=== PATIENT | female | born 1995 | race Hispanic/Latino ===

== ENCOUNTER 2018-02-14 21:02 | Emergency (ER) | payer OTHER ==
[~2018-02-14] VITALS: Ht 162.6 cm; Wt 106.6 kg
[2018-02-14] MEDS ORDERED: METHYLPREDNISOLONE SOD SUCC 125 MG/2ML VIAL IV ONE (21:30)
[2018-02-14] MEDS ORDERED: ALBUTEROL/IPRATROPIUM 3 ML NEB NEB ONE (21:30)
[2018-02-14] MEDS ORDERED: ALBUTEROL SULF 0.083% NEB SOLN 3 ML NEB NEB STA (22:35)
[2018-02-14] MEDS ORDERED: ALBUTEROL/IPRATROPIUM 3 ML NEB ONE (22:45)
--- NOTE | 2018-02-14 22:50 | Diagnostic Imaging Report ---
CHEST SINGLE (PORTABLE), 02/14/2018 9:22 PM Technique: CHEST SINGLE (PORTABLE) Comparison: None available. Clinical history: Breath Findings: Limited by single portable view of the chest and overlying soft tissues. Impression: 1. Normal cardiomediastinal silhouette for technique. 2. No consolidation or edema. 3. No effusion or pneumothorax. 4. 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 Signed by: Dr Patito Patel MD on 02/14/2018 10:47 PM
[2018-02-14] MEDS ORDERED: SODIUM CHLORIDE 0.9% 1000ML 1,000 ML IV SCH (23:45)
[2018-02-15 01:11] VITALS: BP 107/67
== END 2018-02-15 01:20 | disposition home or self-care (01) ==
LOC: ER 21:02
DX: R06.00 Dyspnea, unspecified (principal); R05 Cough; J45.41 Moderate persistent asthma with (acute) exacerbation
CPT/HCPCS: 71045; 94640; 99283; J2930; J7030

== ENCOUNTER 2024-07-31 00:58 | Inpatient (IN) | payer SELFPAY ==
[~2024-07-31] VITALS: Ht 165.1 cm; Wt 108.9 kg
[2024-07-31] VITALS (29 sets, daily range): BP systolic 98–129; BP diastolic 64–85; PULSE 76–114; RESP 14–25; TEMP 97.4–98.9; O2SAT 97–100
[2024-07-31] MEDS: PREDNISONE 20 MG TAB PO STA (01:25)
[2024-07-31] MEDS: ALBUTEROL/IPRATROPIUM 3 ML NEB NEB ONE (01:27)
[2024-07-31 01:34] LABS: STREPTOCOCCUS GRP A ANTIGEN NEGATIVE (NEGATIVE)
[2024-07-31 01:45] LABS: CORONAVIRUS COVID-19 AG NEGATIVE (NEGATIVE); INFLUENZA A AG NEGATIVE (NEGATIVE); INFLUENZA B AG NEGATIVE (NEGATIVE)
[2024-07-31] MEDS: ALBUTEROL/IPRATROPIUM 3 ML NEB NEB STA (02:06)
[2024-07-31] MEDS: MAGNESIUM SULF 1GRAM/DEXTROSE 100 ML IV ONE (02:10)
[2024-07-31] MEDS: SODIUM CHLORIDE 0.9% 1000ML 1,000 ML IV SCH (02:11)
[2024-07-31 03:33] LABS: AMPHETAMINES SCREEN,URINE NEGATIVE (NEGATIVE); BENZODIAZEPINES SCREEN,URINE NEGATIVE (NEGATIVE); CANNABINOIDS SCREEN,URINE NEGATIVE (NEGATIVE); COCAINE SCREEN,URINE NEGATIVE (NEGATIVE); METHADONE SCREEN, URINE NEGATIVE (NEGATIVE); OPIATES SCREEN,URINE NEGATIVE (NEGATIVE); PHENCYCLIDINE SCREEN,URINE NEGATIVE (NEGATIVE)
[2024-07-31] MEDS: ALBUTEROL SULF 0.083% NEB SOLN 3 ML NEB NEB SCH (04:04)
[2024-07-31 06:34] LABS: BASOPHILS # (AUTO) 0.1 (0.0-0.1); BASOPHILS % 0.5 % (0.0-1.0); EOSINOPHILS # (AUTO) 0.6 (0.0-0.4); EOSINOPHILS % 5.8 % (0.0-6.0); HEMATOCRIT 37.2 % (34.2-44.1); HEMOGLOBIN 12.1 g/dL (12.0-16.0); LYMPHOCYTES % 19.9 % (18.0-39.1); MEAN CORPUSCULAR HEMOGLOBIN 31.5 pg (28-32); MEAN CORPUSCULAR HGB CONC 32.5 g/dL (31-35); MEAN CORPUSCULAR VOLUME 96.9 fL (81-99); MONOCYTES # (AUTO) 0.5 (0.2-0.8); MONOCYTES % 4.9 % (4.4-11.3); NEUTROPHILS # (AUTO) 6.9 (2.1-6.9); NEUTROPHILS % 68.6 % (38.7-80.0); PLATELET COUNT 307 x10e3/uL (140-360); RED BLOOD COUNT 3.84 x10e6/uL (3.6-5.1); RED CELL DISTRIBUTION WIDTH 12.6 % (11.7-14.4); WHITE BLOOD COUNT 10.05 x10e3/uL (4.8-10.8)
[2024-07-31 06:56] LABS: ALBUMIN/GLOBULIN RATIO 1.3 (0.8-2.0); ANION GAP 13.6 mmol/L (8-16); BILIRUBIN,TOTAL 0.2 mg/dL (0.2-1.2); CALCIUM 9.2 mg/dL (8.4-10.2); CREATININE, SERUM 0.77 mg/dL (0.57-1.11); POTASSIUM 3.6 mmol/L (3.5-5.1); TOTAL PROTEIN 7.2 g/dL (6.5-8.1)
[2024-07-31] MEDS ORDERED: ONDANSETRON HCL INJ 2MG/ML 2ML 2 MG/ML VIAL IV PRN (08:45)
[2024-07-31] MEDS ORDERED: HYDRALAZINE HCL 20 MG/ML VIAL IV PRN (08:45)
[2024-07-31] MEDS ORDERED: DOXYCYCLINE HYCLATE TABLET 100 MG TAB PO SCH (09:00)
[2024-07-31] MEDS: METHYLPREDNISOLONE SOD SUCC 40 MG/ML VIAL 1ML IV SCH (09:30)
[2024-07-31] MEDS ORDERED: ALBUTEROL0.63 MG/3 NEB (09:47)
[2024-07-31 10:30] LABS: ABG HCO3 19 mmol/L (22-26); ABG PCO2 25 mmHg (35-45); ABG PH 7.49 (7.35-7.45); ABG PO2 74 mmHg (80-105); ABG TCO2 20
[2024-07-31] MEDS: ALBUTEROL/IPRATROPIUM 3 ML NEB NEB SCH (10:59)
[2024-07-31 12:39] LABS: ABG HCO3 19 mmol/L (22-26); ABG PCO2 25 mmHg (35-45); ABG PH 7.49 (7.35-7.45); ABG PO2 74 mmHg (80-105); ABG TCO2 20
[2024-07-31] MEDS: ENOXAPARIN SOD INJ 40 MG/0.4 ML SYR SC SCH (17:08)
[2024-07-31] MEDS: ACETAMINOPHEN 325 MG TAB PO PRN (18:43)
[2024-07-31] MEDS: BUDESONIDE/FORMOTEROL 160/4.5MCG INHALER INH SCH (19:26)
[2024-08-01] VITALS (18 sets, daily range): BP systolic 61–119; BP diastolic 8–74; PULSE 93–142; RESP 11–22; TEMP 97.7–98.4; O2SAT 93–100
[2024-08-01] MEDS: GUAIFENESIN/CODEINE 5 ML LIQD PO PRN (01:13)
[2024-08-01] MEDS: ALBUTEROL/IPRATROPIUM 3 ML NEB NEB PRN (05:06)
[2024-08-01 07:02] LABS: BASOPHILS % 0.1 % (0.0-1.0); HEMATOCRIT 36.9 % (34.2-44.1); HEMOGLOBIN 12.4 g/dL (12.0-16.0); LYMPHOCYTES # (AUTO) 0.8 (1.0-3.2); LYMPHOCYTES % 5.6 % (18.0-39.1); MEAN CORPUSCULAR HEMOGLOBIN 31.8 pg (28-32); MEAN CORPUSCULAR HGB CONC 33.6 g/dL (31-35); MEAN CORPUSCULAR VOLUME 94.6 fL (81-99); MONOCYTES # (AUTO) 0.2 (0.2-0.8); MONOCYTES % 1.4 % (4.4-11.3); NEUTROPHILS % 92.3 % (38.7-80.0); PLATELET COUNT 333 x10e3/uL (140-360); RED CELL DISTRIBUTION WIDTH 12.7 % (11.7-14.4); WHITE BLOOD COUNT 15.13 x10e3/uL (4.8-10.8)
[2024-08-01 07:28] LABS: ALBUMIN 3.8 g/dL (3.5-5.0); ALBUMIN/GLOBULIN RATIO 1.2 (0.8-2.0); ANION GAP 13.1 mmol/L (8-16); BILIRUBIN,TOTAL 0.2 mg/dL (0.2-1.2); CALCIUM 9.1 mg/dL (8.4-10.2); CREATININE, SERUM 0.65 mg/dL (0.57-1.11); POTASSIUM 4.1 mmol/L (3.5-5.1); TOTAL PROTEIN 6.9 g/dL (6.5-8.1)
[2024-08-01] MEDS: METHYLPREDNISOLONE SOD SUCC 40 MG/ML VIAL 1ML IV STA (20:13)
[2024-08-01] MEDS: METHYLPREDNISOLONE SOD SUCC 40 MG/ML VIAL 1ML IV SCH (22:31)
[2024-08-02] VITALS (15 sets, daily range): BP systolic 100–115; BP diastolic 61–74; PULSE 72–127; RESP 16–22; TEMP 97.5–98.2; O2SAT 94–100
[2024-08-02] MEDS: BENZONATATE 100 MG CAP PO PRN (10:14)
[2024-08-02] MEDS: METHYLPREDNISOLONE SOD SUCC 40 MG/ML VIAL 1ML IV SCH (20:07)
[2024-08-03] VITALS (15 sets, daily range): BP systolic 107–124; BP diastolic 68–88; PULSE 80–115; RESP 18–22; TEMP 97.7–98.3; O2SAT 97–100
[2024-08-03 08:30] LABS: BASOPHILS % 0.1 % (0.0-1.0); HEMATOCRIT 37.9 % (34.2-44.1); HEMOGLOBIN 12.4 g/dL (12.0-16.0); LYMPHOCYTES # (AUTO) 1.4 (1.0-3.2); LYMPHOCYTES % 12.8 % (18.0-39.1); MEAN CORPUSCULAR HEMOGLOBIN 31.3 pg (28-32); MEAN CORPUSCULAR HGB CONC 32.7 g/dL (31-35); MEAN CORPUSCULAR VOLUME 95.7 fL (81-99); MONOCYTES # (AUTO) 0.3 (0.2-0.8); MONOCYTES % 2.6 % (4.4-11.3); NEUTROPHILS # (AUTO) 8.9 (2.1-6.9); NEUTROPHILS % 83.3 % (38.7-80.0); PLATELET COUNT 337 x10e3/uL (140-360); RED BLOOD COUNT 3.96 x10e6/uL (3.6-5.1); RED CELL DISTRIBUTION WIDTH 12.9 % (11.7-14.4); WHITE BLOOD COUNT 10.74 x10e3/uL (4.8-10.8)
[2024-08-03 08:42] LABS: ANION GAP 14.5 mmol/L (8-16); CALCIUM 8.9 mg/dL (8.4-10.2); CREATININE, SERUM 0.68 mg/dL (0.57-1.11); POTASSIUM 3.5 mmol/L (3.5-5.1)
[2024-08-04] VITALS (8 sets, daily range): BP systolic 117–124; BP diastolic 67–81; PULSE 69–101; RESP 18–20; TEMP 97.7–98.2; O2SAT 94–99
== END 2024-08-04 11:50 | disposition home or self-care (01) | DRG 202 ==
LOC: ER 01:01 → ERHOLD 03:09 → ICU 08:23 → MED/SURG2 08-01 23:09
PROVIDERS: ADMIT Internal Medicine; ATTEND Internal Medicine
PROC: 4A133R1 Monitoring of Arterial Saturation, Peripheral, Percutaneous Approach (ICD-10-PCS; principal; 2024-07-31)
DX: J45.901 Unspecified asthma with (acute) exacerbation (principal); J96.01 Acute respiratory failure with hypoxia; Z68.41 Body mass index [BMI] 40.0-44.9, adult; E66.01 Morbid (severe) obesity due to excess calories; J45.902 Unspecified asthma with status asthmaticus; D64.9 Anemia, unspecified; Z79.51 Long term (current) use of inhaled steroids; Z11.52 Encounter for screening for COVID-19; E66.9 Obesity, unspecified; Z68.39 Body mass index [BMI] 39.0-39.9, adult
CPT/HCPCS: 36415; 36600; 71045; 80048; 80053; 80307; 82805; 83518; 84702; 85025; 87070; 93005; 94640; 94660; 94664; 94799; 99252; 99284; J0696; J1650; J2470; J2919; J3475; J7030; J7050; J7512

== ENCOUNTER 2024-12-29 09:26 | Emergency (ER) | payer SELFPAY ==
[~2024-12-29] VITALS: Ht 165.1 cm; Wt 127.0 kg
[~2024-12-29 09:26] MED LIST: ALBUTEROL0.63 MG/3 NEB
[2024-12-29 09:35] VITALS: TEMP 98.1
[2024-12-29] MEDS: DEXAMETHASONE SOD PHOS 10 MG/1 ML VIAL IV STA (10:05)
[2024-12-29 10:07] VITALS: PULSE 103; RESP 18; O2SAT 98
[2024-12-29] MEDS: IPRATROPIUM BROMIDE 0.02% 2.5 ML NEB NEB ONE (10:08)
[2024-12-29 10:09] VITALS: PULSE 106; RESP 18; O2SAT 97
[2024-12-29] MEDS: ALBUTEROL SULF 0.083% NEB SOLN 3 ML NEB NEB STA (10:09)
[2024-12-29 10:11] LABS: BASOPHILS % 0.5 % (0.0-1.0); EOSINOPHILS % 3.4 % (0.0-6.0); LYMPHOCYTES % 16.0 % (18.0-39.1); MONOCYTES % 6.4 % (4.4-11.3); NEUTROPHILS % 73.5 % (38.7-80.0); RED CELL DISTRIBUTION WIDTH 12.3 % (11.7-14.4)
[2024-12-29 10:40] LABS: EST GLOMERULAR FILTRATION RATE 120.0 ML/MIN (>=60)
[2024-12-29 11:00] VITALS: PULSE 105; RESP 19; O2SAT 97
[2024-12-29 11:03] LABS: CORONAVIRUS COVID-19 AG NEGATIVE (NEGATIVE); INFLUENZA A NAA NEGATIVE (NEGATIVE); INFLUENZA B NAA NEGATIVE (NEGATIVE)
[2024-12-29] MEDS ORDERED: DEXAMETHASONE4 MG PO (11:25)
== END 2024-12-29 11:32 | disposition home or self-care (01) ==
LOC: ER 09:33
DX: R06.00 Dyspnea, unspecified (principal); J45.909 Unspecified asthma, uncomplicated; R05.9 Cough, unspecified; Z87.19 Personal history of other diseases of the digestive system
CPT/HCPCS: 36415; 71045; 80053; 83518; 84484; 84702; 85025; 85379; 87070; 87426; 93005; 94640; 94799; 99284; J1100